=== PATIENT | male | born 2000 | race Hispanic/Latino ===

== ENCOUNTER 2024-05-04 10:05 | Emergency (ER) | payer MEDICAID ==
[~2024-05-04] VITALS: Ht 165.1 cm; Wt 60.3 kg
[~2024-05-04 10:05] MED LIST: LEVE-43 PO
--- NOTE | 2024-05-04 10:40 | ERN ---
ED Note History of Present Illness Stated Complaint: SEIZURES Chief Complaint: Seizure Time Seen by MD: 10:11 Dictation: Patient is a 24-year-old male here via EMS with complaints of having a seizure while walking to the store from his house. Was found on the ground by ped estrians was face down and postictal on arrival by EMS. Patient does have a history of MR with seizures has been to the emergency room at [facility] prior and is on Keppra. The only thing he can tell us is that his grandfather gives him a blue pill. Grandfather is his primary workers compensation coordinator however he is not available here. He has got multiple facial abrasions and co ntusions no hematoma to his face no hemotympanum no dee or raccoon sign. Allergies: Coded Allergies: No Known Drug Allergies (Unverified Allergy, Unknown, 05/04/24) Home Meds Active Scripts Levetiracetam (Keppra) 500 Mg Tablet, 500 MG PO BID for 30 Days, #60 TAB 0 Refills Prov:ISIDRO ZELAYA MD 09/28/23 Past Medical History Past Medical History: Seizure Surgical History: None RN Note Reviewed/Agreed w/PFSH: Yes Review of System Dictation CONSTITUTIONAL: Negative except for HPI HEAD/FACE: Negative except for HPI multiple facial contusions abrasions EENT: Negative except for HPI RESPIRATORY: Negative except for HPI GASTROINTESTINAL/ABDOMINAL: Negative except for HPI GENITOURINARY: Negative except for HPI MUSCULOSKELETAL: Negative except for HPI INTEGUMENTARY: Negative except for HPI NEUROLOGICAL/PSYCH: Negative except for HPI seizure HEMATOLOGIC/LYMPHATIC: Negative except for HPI All Systems Negative, Except as noted above. 13 point review of systems assessed and all negative except for above. Initial Vital Sign VS Vital Signs Date Time Temp Pulse Resp B/P (MAP) Pulse Ox O2 Delivery O2 Flow Rate FiO2 05/04/24 10:05 98.1 90 19 113/68 97 Room Air 0 05/04/24 10:12 21 Physical Exam Dictation Vital Signs reviewed General Appearance: Alert, oriented x 1-2, no acute distress, well developed, nourished. Patient has slow mentation with a history of MR Head and Face: Multiple abrasions and contusions to bilateral lateral orbits forehead and cheeks. Eyes: PERRL, pink conjunctivas, eyelid no trauma, anterior chamber with arcus senilis. Ears: Pinnas intact and no signs of trauma or erythema ear canals clear and no discharge TM no erythema no hemotympanum Nose: No discharge, no bleeding. Oropharynx: Mouth normal, tongue pink, pharynx clear,no erythema, tonsils no exudates, no abscesses noted, mucous membrane moist Neck: Supple, non-tender, no thyromegaly, no masses, no JVD, no bruits no midline spine pain Breast:Deferred Chest:No tenderness, no crepitus, no paradoxical movement, no retractions Lungs:Clear, well-ventilated, symmetric, no rales, no wheezing, no rhonchi, no stridor, good breath sounds bilaterally Heart: Regular rate, regular rhythm, no murmur, no gallops Vascular: no peripheral edema, Abdomen: Soft, positive bowel sounds, nondistended, no guarding, nontender, no rebound, no masses no hepatomegaly, no splenomegaly, no Harper's sign, no hernias. Rectal: Deferred Genital: Deferred Neurological: Normal speech, motor function intact, sensory function intact Musculoskeletal: Neck nontender, full range of motion, back nontender, full range of motion, Extremities: nontender, full range of motion Skin: Color pink, dry, no turgor, no rash, no lacerations, no abrasions, no contusions. Lymphatic: Deferred Results (Laboratory/Radiology) Laboratory/Radiology Laboratory Tests Test 05/04/24 11:08 White Blood Count 6.6 K/uL (4.8-10.8) Red Blood Count 4.90 MIL/uL (4.50-6.20) Hemoglobin 14.7 g/dL (14.0-18.0) Hematocrit 41.7 % (42-54) L Mean Corpuscular Volume 85.1 fL (79-99) Mean Corpuscular Hemoglobin 30.0 pg (27.0-33.0) Mean Corpuscular Hemoglobin Concent 35.3 g/dL (32.0-36.0) Red Cell Distribution Width 12.1 % (11.0-15.5) Platelet Count 230 K/uL (130-400) Mean Platelet Volume 9.5 fL (7.5-10.5) Immature Granulocyte % (Auto) 0.5 % (0-1) Neutrophils (%) (Auto) 76.2 % (40.0-77.0) Lymphocytes (%) (Auto) 15.1 % (21.0-51.0) L Monocytes (%) (Auto) 6.7 % (3.0-13.0) Eosinophils (%) (Auto) 1.2 % (0.0-8.0) Basophils (%) (Auto) 0.3 % (0.0-5.0) Neutrophils # (Auto) 5.0 K/uL (1.8-7.7) Lymphocytes # (Auto) 1.0 K/uL (1.0-4.8) Monocytes # (Auto) 0.4 K/uL (0.1-1.0) Eosinophils # (Auto) 0.08 K/uL (0.00-0.70) Basophils # (Auto) 0.02 K/uL (0.00-0.20) Absolute Immature Granulocyte (auto 0.03 K/uL (0-1) Nucleated Red Blood Cells 0.0 % (0.0-0.19) Sodium Level 134 mmol/L (136-145) L Potassium Level 3.8 mmol/L (3.5-5.1) Chloride Level 100 mmol/L (101-111) L Carbon Dioxide Level 29 mmol/L (21-32) Blood Urea Nitrogen 7 mg/dL (7-18) Creatinine 1.0 mg/dL (0.5-1.3) Glomerular Filtration Rate Calc 108 mL/min (>90) Random Glucose 89 mg/dL (70-105) Total Calcium 9.2 mg/dL (8.5-10.1) REASON: epigastric abd pain, elevated liver enzymes. ORDERING PHYSICIAN: LIAM ESTEBAN PROCEDURE: ABDRUQLTD - US ABDOMINAL RUQ\LTD US ABDOMINAL RUQ\E\LTD HISTORY: Abdominal pain COMPARISON: None TECHNIQUE: Right upper quadrant abdominal ultrasound study was performed. FINDINGS: Liver measured 13.3 cm. Gallbladder is distended. The visualized portion of the pancreas is within normal limits. Liver is echogenic consistent with liver parenchymal disease. No gallstone is seen. Common duct measures 5 mm. No evidence of gallbladder wall thickening is seen. Right kidney measures 10.2 x 4.9 x 4.7 cm. No hydronephrosis is seen of the right kidney. IMPRESSION: 1. No gallstones or ductal dilatation is seen. Distended gallbladder. 2. No hydronephrosis is seen. Labs Reviewed?: Yes ED Course ED Course Orders Procedure Category Date Status Time Levetiracetam 500 PHA 05/04/24 In Process Mg/5 Ml Sd V (Keppra 5 11:00 Ct Maxillofacial W/O CT 05/04/24 Resulted Contrast 10:36 Cbc With Differential LAB 05/04/24 Complete 10:36 0.9%Nacl 1000ml (Ns PHA 05/04/24 Complete 1000ml) 11:00 Ketorolac PHA 05/04/24 Complete Tromethamine 30mg/Ml 11:00 Basic Metabolic Panel LAB 05/04/24 Complete 10:36 Apply Ice Pack To: CPOE 05/04/24 Transmitted (Er) 10:36 Current Medications Medications (Trade) Dose Ordered Sig/Jayson Route PRN Reason Start Time Stop Time Status Last Admin Dose Admin Ketorolac Tromethamine (toRADol) 30 mg ONCE ONCE IVP 05/04/24 11:00 05/04/24 11:01 DC 05/04/24 10:54 Levetiracetam (kepPRA 500 MG/5 ML SD VIAL) 1,000 mg ONCE IV 05/04/24 11:00 06/03/24 10:59 05/04/24 11:22 Sodium Chloride 1,000 ml @ 0 mls/hr ONCE ONCE IV 05/04/24 11:00 05/04/24 11:01 DC 05/04/24 10:55 Vital Signs Date Time Temp Pulse Resp B/P (MAP) Pulse Ox O2 Delivery O2 Flow Rate FiO2 05/04/24 11:23 75 16 133/67 99 Room Air* 0 21 05/04/24 10:16 98.2 82 16 126/66 98 Room Air* 0 21 05/04/24 10:12 98.1 90 19 113/68 97 Room Air* 0 21 05/04/24 10:05 98.1 90 19 113/68 97 Room Air 0 1 50, PATIENT REMAINS NEUROLOGICALLY INTACT AT [facility]. DISCHARGED HOME TO HIS GRANDMOTHER AND GRANDFATHER WITH DIAGNOSIS O SEIZURE, FACIAL CONTUSIONS Medical Decision Making MDM MEDICAL DISCHARGE MAKING BASED ON CT OF THE FACE AND LABS. ADDITIONALLY PATIENT LOADED WITH KEPPRA1 G IV PIGGYBACK DISCHARGED HOME TO HIS GRANDPARENTS TO FOLLOW UP WITH HIS DOCTOR IN 1-2 DAYS. PATIENT IS NEUROLOGICALLY BASELINE DX & DISP Disposition: Discharge Departure Impression: Primary Impression: Seizure Additional Impressions: Contusion of face, Closed head injury, Fall Condition: Stable Additional Instructions: FOLLOW-UP WITH PRIMARY CARE PROVIDER IN 1 TO 2 DAYS. TAKE MEDICATIONS DIRECTED HERE IN THE EMERGENCY ROOM. OKAY TO CONTINUE HOME MEDICATIONS UNLESS OTHERWISE DISCUSSED DURING YOUR VISIT IN THE EMERGENCY ROOM TODAY. RETURN TO YOUR NEAREST EMERGENCY ROOM IF SYMPTOMS WORSEN OR IF THERE IS NO IMPROVEMENT. CALL 911 IF YOU NEED IMMEDIATE ASSISTANCE. TAKE TYLENOL OR MOTRIN [id number] NEEDED AND IF NO CONTRAINDICATIONS ARE PRESENT. INCREASE ORAL HYDRATION. A WOUND CULTURE OR URINE CULTURE WAS ORDERED HERE IN THE EMERGENCY ROOM DEPARTMENT PLEASE FOLLOW-UP WITH PRIMARY CARE PROVIDER AND ADVISE THEM TO GET REPEAT PORTS FROM OUR FACILITY. IF YOU HAD ANY TINO WRAP/SPLINTS THAT WERE APPLIED HERE, PLEASE DO NOT REMOVE THEM UNTIL YOU SEE YOUR PRIMARY CARE OR SPECIALTY. CONTINUE YOUR MEDICATIONS AT HOME SEE YOUR PRIMARY CARE DOCTOR FOR FOLLOW UP IN 1-2 DAYS. COOL COMPRESSES TO PAIN THREE TO 4 TIMES A DAY. Referrals: SELF,REFERRAL (PCP) Time of Disposition: 11:50 I have reviewed the case, and I agree with, Diagnosis and Plan CHARLES ARENAS NP May 04, 2024 10:40
[2024-05-04] MEDS: ketOROlac 30MG VIAL (30MG/ML) IVP ONE (10:54)
[2024-05-04] MEDS: 0.9%NACL 1000ML 1,000 ML IV ONE (10:55)
[2024-05-04 11:15] LABS: BASOPHILS # (AUTO) 0.02 K/uL (0.00-0.20); BASOPHILS % (AUTO) 0.3 % (0.0-5.0); EOSINOPHILS # (AUTO) 0.08 K/uL (0.00-0.70); EOSINOPHILS % (AUTO) 1.2 % (0.0-8.0); HEMATOCRIT 41.7 % (42-54); IMMATURE GRANULOCYTE ABSOLUTE 0.03 K/uL (0-1); LYMPHOCYTES % (AUTO) 15.1 % (21.0-51.0); MEAN CORPUSCULAR HGB CONC 35.3 g/dL (32.0-36.0); MEAN CORPUSCULAR VOLUME 85.1 fL (79-99); MONOCYTES # (AUTO) 0.4 K/uL (0.1-1.0); MONOCYTES % (AUTO) 6.7 % (3.0-13.0); NEUTROPHILS % (AUTO) 76.2 % (40.0-77.0); PLATELET COUNT (AUTO) 230 K/uL (130-400); RED CELL DISTRIBUTION WIDTH 12.1 % (11.0-15.5); WHITE BLOOD COUNT (AUTO) 6.6 K/uL (4.8-10.8)
[2024-05-04] MEDS: leveTIRACEtam 500 MG/5 ML SD VIAL IV SCH (11:22)
[2024-05-04 11:26] LABS: POTASSIUM 3.8 mmol/L (3.5-5.1)
--- NOTE | 2024-05-04 11:45 | HMCIMG ---
CT MAXILLOFACIAL W/O CONTRAST HISTORY: Seizure COMPARISON: None TECHNIQUE: Multiple sequential high-resolution axial images of the paranasal sinuses were obtained. Postprocessing sagittal and coronal reconstruction images were also obtained. Patient was not given contrast through intravenous route. FINDINGS: Nasal septum is deviated towards left. There is nasal polyposis. There is mild mucoperiosteal thickening involving the bilateral ethmoid sinuses. The infundibula are patent bilaterally. No acute displaced fracture is seen. There is no evidence of air-fluid level in the paranasal sinuses. Parapharyngeal fat planes are preserved bilaterally. IMPRESSION: 1. No acute displaced fracture is seen. Mild bilateral ethmoid sinus disease. CT was performed with one or more following dose reduction techniques: automated exposure control, adjustment of the mA and kv according to patient's size, or use of a iterative reconstruction technique.
[2024-05-04 12:05] VITALS: BP 126/68; PULSE 68; RESP 16; TEMP 98.2; O2SAT 99
== END 2024-05-04 12:06 | disposition home or self-care (01) ==
LOC: EDH 10:05
DX: S00.83XA Contusion of other part of head, initial encounter (principal); R56.9 Unspecified convulsions; Z79.899 Other long term (current) drug therapy; W18.39XA Other fall on same level, initial encounter; Y93.01 Activity, walking, marching and hiking; Y92.89 Other specified places as the place of occurrence of the external cause; Y99.8 Other external cause status
CPT/HCPCS: 99285; 96365; 70486; 96375; 80048; 85025; 36415; J1953; J7030; J1885